=== PATIENT | female | born 1970 | race Two or more races ===

== ENCOUNTER 2023-08-29 05:22 | Day surgery (SDC) | payer OTHER ==
[~2023-08-29] VITALS: Ht 160 cm; Wt 76.2 kg
[2023-08-29] MEDS ORDERED: FENTANYL PF 250MCG/5ML AMPUL ONE (06:18)
[2023-08-29] MEDS ORDERED: ROCURONIUM BROMIDE 50 MG/5 ML ONE (06:19)
[2023-08-29] MEDS ORDERED: BUPIVACAINE 0.5 % PF 150 MG/30 ML VIAL ONE (06:24)
[2023-08-29] MEDS ORDERED: FENTANYL PF 100MCG/2ML AMPUL ONE ×2 (07:40→07:56)
[2023-08-29] MEDS ORDERED: ONDANSETRON HCL/PF 4 MG/2 ML VIAL ONE (08:35)
[2023-08-29] MEDS ORDERED: FLUO20CA36 PO (09:38)
[2023-08-29] MEDS ORDERED: HYDROCODONE/APAP 10/325MG TABLET PO PRN (11:00)
[2023-08-29] MEDS ORDERED: PROCHLORPERAZINE MALEATE 10 MG TABLET PO PRN (11:00)
[2023-08-29 11:08] VITALS: BP 112/65; TEMP 97.7; O2SAT 96
== END 2023-08-29 18:00 | disposition home or self-care (01) ==
LOC: DS 05:22 → UNDOADMIN 05:24 → MED 05:24 → UNDODISIN 14:12 → DS 18:00
PROVIDERS: ATTEND Specialist
DX: M25.361 Other instability, right knee (principal)
CPT/HCPCS: 27405; 29877; J0690; J3490 ×2; J2704; J3010 ×3; J1885; J2405; J7030; A4217; G0378; Q0164